=== PATIENT | male | born 1960 | race Caucasian/White ===

== ENCOUNTER → 2016-12-14 | Outpatient (CLI) | payer OTHER | LOC: FLAB 13:37 | PROVIDERS: ATTEND Orthopaedic Surgery Sports Medicine | DX: M25.512 Pain in left shoulder (principal); Z98.890 Other specified postprocedural states; Z96.612 Presence of left artificial shoulder joint ==

== ENCOUNTER 2018-08-30 16:35 | Observation (INO) | payer OTHER ==
--- NOTE | 2018-08-30 16:58 | EDPHY ---
H & P Time Seen by Provider: 08/30/18 16:45 HPI/ROS: CHIEF COMPLAINT: Chest pain shortness of breath HISTORY OF PRESENT ILLNESS: 58-year-old man was skiing at [place], when he developed around noon with shortness of breath associated feeling dizzy and tightness in the left side of his chest. Skiing was good, so he took a 2nd run but that made him feel worse and so he drove himself down to [place] for evaluation. Walking from the car to the triage just made his symptoms worse. Left-sided chest tightness without radiation. Very mild currently. Not associated with nausea or diaphoresis. REVIEW OF SYSTEMS: Eye: no change in vision ENT: no sore throat Cardiac: HPI Pulmonary: No cough or hemoptysis Abdomen: no vomiting, diarrhea, abdominal pain Musculoskeletal: no back pain or leg swelling Skin: no rash Neuro: no headache Constitutional: no fever : no urinary symptoms A comprehensive 10 point review of systems is otherwise negative aside from elements mentioned in the history of present illness. PAST MEDICAL HISTORY: Left knee surgery, 10 shoulder surgeries including 2 complete replacements, anxiety depression on Effexor Denies family history of venous thromboembolism or premature coronary disease Social history: Nonsmoker, no recent travel or immobilization. General Appearance: Alert and conversant, cooperative. Eyes: No scleral icterus. ENT, Mouth: Normal mucous membranes. Respiratory: Normal respiratory effort, breath sounds equal, lungs are clear to auscultation. Cardiovascular: Regular rate and rhythm. No murmur. Gastrointestinal: Abdomen is soft and non tender. Neurological: Alert, face symmetric, normal motor and sensory in extremities. Skin: Warm and dry, no rashes. Musculoskeletal: No peripheral edema. No calf tenderness. Psychiatric: Not agitated. Emergency Department course/MDM: Patient took 2 oral aspirin at home. Plan for sublingual nitroglycerin, chest x -ray, troponin and D-dimer. 1724: Results discussed including negative D-dimer and troponin, normal chest x -ray. I would score him 4 on HEART; 2 for highly suspicious history, 1 for age, 1 for EKG. Plan for admission and inpatient risk stratification. 1732: [place] better after sublingual nitroglycerin, agrees for admission. Smoking Status: Never smoked Constitutional: Initial Vital Signs Temperature (C) 36.4 C 08/30/18 16:40 Heart Rate 88 08/30/18 16:40 Respiratory Rate 18 08/30/18 16:40 Blood Pressure 149/104 H 08/30/18 16:40 O2 Sat (%) 98 08/30/18 16:40 O2 Delivery Mode Room Air Allergies/Adverse Reactions: No Known Allergies Allergy (Verified 08/30/18 16:39) Home Medications: Medication Instructions Recorded Venlafaxine Xr [Effexor Xr] 300 mg PO DAILY 03/29/14 Ibuprofen [Motrin (*)] 600 mg PO Q6H PRN 06/11/15 Tears/Hypromellose [Natural 1 - 2 drops EACHEYE DAILY PRN 06/11/15 Balance] Medical Decision Making - Diagnostics EKG Interpretation: 12-lead EKG interpreted by me; official reading is in computer system. My interpretation is sinus rhythm rate 99 with hyperacute anterior T-waves. Imaging Results: Imaging Impressions Chest X-Ray 08/30/18 16:55 Impression: No acute abnormality. Negative chest x-ray. Imaging: I viewed and interpreted images myself Differential Diagnosis: Differential diagnosis considered for chest pain including but not limited to myocardial ischemia, aortic dissection, pericarditis, pulmonary embolus, chest wall pain, pleural inflammation and pulmonary infectious causes. Consult/Admit Bed Type: [place] [id number] - Data Points Laboratory Results: Laboratory Results 08/30/18 16:50 08/30/18 16:50 08/30/18 08/30/18 08/30/18 16:53 16:50 16:50 WBC RBC Hgb Hct MCV MCH MCHC RDW Plt Count MPV Neut % (Auto) Lymph % (Auto) Travis % (Auto) Eos % (Auto) Baso % (Auto) Nucleat RBC Rel Count Absolute Neuts (auto) Absolute Lymphs (auto) Absolute Monos (auto) Absolute Eos (auto) Absolute Basos (auto) Absolute Nucleated RBC Immature Gran % Immature Gran # D-Dimer < 0.27 ug/mLFEU ug/mLFEU (0.00-0.50) Sodium 137 mEq/L mEq/L (135-145) Potassium 4.5 mEq/L mEq/L (3.5-5.2) Chloride 103 mEq/L mEq/L (97-110) Carbon Dioxide 23 mEq/l mEq/l (22-31) Anion Gap 11 mEq/L mEq/L (6-14) BUN 16 mg/dL mg/dL (7-23) Creatinine 0.9 mg/dL mg/dL (0.7-1.3) Estimated GFR > 60 Glucose 89 mg/dL mg/dL (70-100) Calcium 9.8 mg/dL mg/dL (8.5-10.4) POC Troponin I 0.00 ng/mL ng/mL (0.00-0.08) 08/30/18 16:50 WBC 10.16 10^3/uL H 10^3/uL (3.80-9.50) RBC 5.15 10^6/uL 10^6/uL (4.40-6.38) Hgb 16.5 g/dL g/dL (13.7-17.5) Hct 47.0 % % (40.0-51.0) MCV 91.3 fL fL (81.5-99.8) MCH 32.0 pg pg (27.9-34.1) MCHC 35.1 g/dL g/dL (32.4-36.7) RDW 12.6 % % (11.5-15.2) Plt Count 363 10^3/uL 10^3/uL (150-400) MPV 9.8 fL fL (8.7-11.7) Neut % (Auto) 65.2 % % (39.3-74.2) Lymph % (Auto) 24.7 % % (15.0-45.0) Travis % (Auto) 8.8 % % (4.5-13.0) Eos % (Auto) 0.3 % L % (0.6-7.6) Baso % (Auto) 0.5 % % (0.3-1.7) Nucleat RBC Rel Count 0.0 % % (0.0-0.2) Absolute Neuts (auto) 6.63 10^3/uL H 10^3/uL (1.70-6.50) Absolute Lymphs (auto) 2.51 10^3/uL 10^3/uL (1.00-3.00) Absolute Monos (auto) 0.89 10^3/uL H 10^3/uL (0.30-0.80) Absolute Eos (auto) 0.03 10^3/uL 10^3/uL (0.03-0.40) Absolute Basos (auto) 0.05 10^3/uL 10^3/uL (0.02-0.10) Absolute Nucleated RBC 0.00 10^3/uL 10^3/uL (0-0.01) Immature Gran % 0.5 % % (0.0-1.1) Immature Gran # 0.05 10^3/uL 10^3/uL (0.00-0.10) D-Dimer Sodium Potassium Chloride Carbon Dioxide Anion Gap BUN Creatinine Estimated GFR Glucose Calcium POC Troponin I Medications Given: Nitroglycerin (Nitrostat) 0.4 mg SL Q5M PRN PRN Reason: Chest Pain Last Admin: 08/30/18 19:00 Dose: 0.4 mg Point of Care Test Results: Chemistry 08/30/18 16:53 POC Troponin I 0.00 ng/mL ng/mL (0.00-0.08) Departure - Departure Disposition: [facility] Inpatient Acute Clinical Impression: Chest pain Qualifiers: Chest pain type: unspecified Qualified Code(s): R07.9 - Chest pain, unspecified Condition: Good
--- NOTE | 2018-08-30 16:59 | CPEKG ---
Test Reason : OPEN Blood Pressure : / mmHG Vent. Rate : 099 BPM Atrial Rate : 101 BPM P-R Int : 139 ms QRS Dur : 105 ms QT Int : 348 ms P-R-T Axes : 087 084 043 degrees QTc Int : 447 ms Sinus rhythm Prominent P waves, nondiagnostic Borderline right axis deviation Minimal ST elevation, anterior leads Confirmed by Juan A Hogan ([id number]) on 08/30/2018 4:58:31 PM Referred By: Confirmed By:Juan A Hogan
[2018-08-30 17:04] LABS: PLATELET COUNT 363 10^3/uL (150-400)
[2018-08-30] MEDS ORDERED: NITROGLYCERIN 0.4 MG BTL SL ONE (17:14)
[2018-08-30] MEDS: NITROGLYCERIN 0.4 MG BTL SL PRN ×2 (17:19→19:00)
[2018-08-30] MEDS ORDERED: ACETAMINOPHEN 325 MG TAB PO PRN (18:45)
[2018-08-30] MEDS ORDERED: ONDANSETRON 4 MG/2 ML VIAL IVP PRN (18:45)
[2018-08-30] MEDS ORDERED: ONDANSETRON DISINTEGRATING 4 MG TAB PO PRN (18:45)
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
[2018-08-30] MEDS ORDERED: clonazePAM 1 MG TAB PO ONE (22:45)
[2018-08-31] MEDS ORDERED: diphenhydrAMINE 25 MG CAP PO PRN (01:38)
[2018-08-31] MEDS ORDERED: VENLAFAXINE XR 150 MG CAP PO SCH (09:00)
[2018-08-31] MEDS ORDERED: ASPIRIN 325 MG TAB PO SCH (09:00)
[2018-08-31] MEDS ORDERED: REGADENOSON 0.4 MG/5 ML SYR IVP ONE (09:49)
--- NOTE | 2018-08-31 11:01 | CPR ---
DATE OF PROCEDURE: 08/31/2018 PROCEDURE: Nuclear treadmill stress test. REASON FOR TEST: Chest discomfort. Resting EKG shows a regular sinus rhythm, idioventricular conduction delay in V1 , late R-wave progression across the anterior septal leads. Resting heart rate 115, sinus tachycardia. Right axis deviation noted. Resting blood pressure 156 /88. STRESS PORTION: He was exercised according to the [place] protocol. He exercised for a total of 4 minutes and 30 seconds. He did have some chest tightness. Maximal exercise blood pressure 162/84, maximal heart rate 148. No significant EKG changes during exercise. No worsening chest discomfort. RECOVERY: His blood pressure remained elevated at 176/90. Heart rate did come down to 100. EKG stable. At this time, he is stable to go to nuclear imaging. /[id number]/MODL MTDD
[2018-08-31 11:48] VITALS: BP 144/97
--- NOTE | 2018-08-31 13:12 | PDDCSUM ---
Discharge Summary Discharge Summary: This is a 58 yo male that had exertional chest pain while skiing. He was admitted for cp r/o. He had normal troponin. There was some concern for abnormal EKG with possible ST depression in the lateral leads. Cardiology was consulted. A Nuclear Stress test was performed and this was negative for ischemia and there was no focal wall abnormalities. The stress component showed no EKG changes. The results were d/w cardiology and the recommendation is for discharge. DDX: #CP: no e/o of CAD #depression: Effexor Exam: NAD AAOX3 RRR CTA B S/NT/ND MEDS: SEE MED REC TOTAL TIME SPENT ON D/C IS 35 MINS
--- NOTE | 2018-08-31 13:20 | GHP ---
DATE OF ADMISSION: 08/30/2018 REASON FOR ADMISSION: Chest pain. HPI: This patient is a 58-year-old male with past medical history of depression and prior use of dimple cotic and benzodiazepine. He was skiing in [place] yesterday and, after an hour, developed notable ches t pain. He then became short of breath, felt dizzy and somewhat lightheaded. He stopped skiing, and symptoms did subside. When he did return to skiing, he developed chest pain again. He drove himsel f home and came to the emergency room for further evaluation. While driving down to [place], the sym ptoms did subside; however, merely walking across the parking lot he redeveloped the chest pain. He has never had any past cardiac problems. He does become easily anxious and suffers with depression. He otherwise has had no change in his health recently. ALLERGIES: He has no known allergies. MEDICATIONS: Effexor 300 mg daily, Motrin 600 mg every 6 hours as needed for discomfort, Natural Bal ance eyedrops daily as needed. PAST HISTORY: He does have a history of GERD, depression and anxiety. Additionally, he has a histor y of alcohol abuse, narcotic addiction in the past, benzodiazepine addiction in the past. PAST SURGICAL HISTORY: Shoulder surgery, knee surgery, finger surgery in the past. PAST FAMILY HISTORY: He denies family history of coronary artery disease. However, in review of [facility] rt, it is noted that he reported he had a grandfather who had an ME in his 60s. SOCIAL HISTORY: Alcohol use occasionally. Previous use of narcotics and benzodiazepines in the past . REVIEW OF SYSTEMS: 10-point review of systems negative except that noted in the HPI. PHYSICAL EXAM: Constitutional: He is in no distress. He is alert and oriented. HEENT: Eyes, scle bree white. Ear/nose/throat, mucous membranes moist. No hearing abnormalities. CARDIOVASCULAR: Hea rt rate regular with regular rhythm. No murmurs, rubs or gallops. RESPIRATORY: His lungs are clear to auscultation. No wheezes, rales or rhonchi. GASTROINTESTINAL: Normal bowel sounds. ABDOMEN: Soft and nontender. GENITOURINARY: No bladder discomfort. SKIN: Warm and dry with no discoloratio n. MUSCULOSKELETAL: Good muscle strength. NEUROLOGIC: Alert and oriented x3. PSYCHIATRIC: No an xiety. VITAL SIGNS: This morning 142/84, heart rate 90 and regular, oxygen saturation 98%. DIAGNOSTIC STUDIES: 08/30/2018: White blood count 10.16, hemoglobin 16.5, hematocrit 47.0, MCV 91.3 , platelet count 363, neutrophils 6.63, monoycytes 0.89. D-dimer less than 0.27. Chemistry: Sodium 137, potassium 4.5, BUN 16, creatinine 0.9, GFR greater than 60, glucose 89, calcium 9.8, troponin l ess than 0.012 two times. 08/30/2018: Chest x-ray showed no acute abnormality. EKG on admission: Regular sinus rhythm with rate of 99. No significant ST changes. 08/31/2018: Nuclear myocardial perfusion test. Impression: 1. Normal left ventricular ejection fraction of 62%. 2. No focal wall motion abnormalities. 3. No evidence of ischemia or infarct. IMPRESSION/PLAN: At this time, he currently has no chest pain or shortness of breath. His nuclear p erfusion stress test was normal. He had what he described as some chest pressure, rated a 2 on the t readmill. However, there were no EKG changes. Myocardial perfusion study showed his ejection fracti on at 62%. There were no wall motion abnormalities and no evidence of ischemia or infarct. This is likely noncardiac chest pressure. Other cause of his chest discomfort may be gastroesophagea l reflux disease. He does suffer from anxiety and depression. This is likely noncardiac chest pressure. No further cardiac testing is warranted at this time. Thank you very much for asking us to be a part of this patient's care. /[id number]/MODL
== END 2018-08-31 13:45 | disposition home or self-care (01) ==
LOC: F2W 20:20
PROVIDERS: ADMIT Internal Medicine; ATTEND Internal Medicine
DX: R07.9 Chest pain, unspecified (principal); R06.02 Shortness of breath
CPT/HCPCS: 71046; 78452; 93005; 93017; 99285; A9500; G0378; 84484-ER; J2785

== ENCOUNTER → 2018-11-17 | Outpatient (CLI) | payer OTHER ==
[~2018-11-17] MED LIST: IOPAMIDOL (ISOVUE 370) 100 ML BTL IV ONE; NITROGLYCERIN 0.4 MG BTL SL ONE
== END ==
LOC: FIMAGING 08:13
PROVIDERS: ATTEND Internal Medicine Interventional Cardiology
DX: R07.9 Chest pain, unspecified (principal); R06.02 Shortness of breath
CPT/HCPCS: Q9967